=== PATIENT | female | born 1975 | race Caucasian/White ===

== ENCOUNTER 2017-09-25 05:14 | Emergency (ER) | payer OTHER ==
[~2017-09-25] VITALS: Ht 167.6 cm; Wt 75.0 kg
[2017-09-25 05:20] VITALS: BP 147/85; PULSE 118; RESP 16; TEMP 98.3; O2SAT 99
[2017-09-25] MEDS ORDERED: ALPH200C4 PO ×2 (05:34)
[2017-09-25] MEDS ORDERED: PROT40TA PO (05:34)
[2017-09-25] MEDS ORDERED: VITA10002 PO (05:34)
[2017-09-25] MEDS ORDERED: ERGO2000 PO (05:34)
[2017-09-25] MEDS ORDERED: LISI-515 PO (05:34)
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
[2017-09-25] MEDS ORDERED: IBUPROFEN 800 MG TAB PO ONE (06:30)
--- NOTE | 2017-09-25 06:46 | RADRPT ---
EXAM DATE/TIME: 09/25/2017 06:24 [facility] COMPARISON: No previous studies available for comparison. INDICATIONS : Nontraumatic and nonspecific right sided back pain for one month. MEDICAL HISTORY : None. SURGICAL HISTORY : None. ENCOUNTER: Initial ACUITY: 1 month PAIN SCORE: 3/10 LOCATION: Right flank back FINDINGS: Lower spinal alignment is satisfactory. There is no evidence of fracture or destructive change. Disc spaces are well-preserved. There are tiny ventral and classify seen at L3-4 and L4-5 interspaces. CONCLUSION: Slight degenerative change in the lower lumbar spine. No acute bony findings. Estrada Jang MD on September 25, 2017 at 6:44 Board Certified Radiologist. This report was verified electronically.
[2017-09-25] MEDS ORDERED: ROBA750T PO (07:01)
[2017-09-25] MEDS ORDERED: MEDR4PAK PO (07:01)
== END 2017-09-25 07:15 | disposition home or self-care (01) ==
LOC: NEPC 05:14
DX: M51.16 Intervertebral disc disorders with radiculopathy, lumbar region (principal); R00.2 Palpitations
CPT/HCPCS: 72100; 99284